=== PATIENT | female | born 1965 ===

== ENCOUNTER 2021-09-20 20:23 | Emergency (ER) | payer SELFPAY ==
[2021-09-20] MEDS ORDERED: ACETAMINOPHEN 500 MG TAB PO ONE (21:15)
[2021-09-20] MEDS ORDERED: HYDROcodone/ACETAMINOPHEN 5-325 MG TAB PO ONE (21:39)
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
--- NOTE | 2021-09-20 21:51 | XRay Report ---
RIGHT TIBIA-FIBULA 2 VIEW(S) INDICATION / CLINICAL INFORMATION: RLE pain COMPARISON: None available. FINDINGS: BONES / JOINT(S): There is a minimally displaced transverse fracture through the proximal fibular mike physis. No significant arthritis. SOFT TISSUES: No significant abnormality. ADDITIONAL FINDINGS: None. Signer Name: Fahad Sidhu DO Signed: 09/20/2021 9:47 PM Workstation Name: [id number]
--- NOTE | 2021-09-20 21:52 | XRay Report ---
RIGHT KNEE 3 VIEW(S) INDICATION / CLINICAL INFORMATION: knee pain COMPARISON: None available. FINDINGS: BONES / JOINT(S): Minimally displaced fracture at the proximal fibular diaphysis No significant arthr itis. SOFT TISSUES: No significant abnormality. ADDITIONAL FINDINGS: None. Signer Name: Fahad Sidhu DO Signed: 09/20/2021 9:47 PM Workstation Name: [id number]
[2021-09-21 00:51] VITALS: BP 152/70
== END 2021-09-20 23:48 | disposition home or self-care (01) ==
LOC: ED 20:23
DX: S82.831A Other fracture of upper and lower end of right fibula, initial encounter for closed fracture (principal); I10 Essential (primary) hypertension; E11.9 Type 2 diabetes mellitus without complications; X58.XXXA Exposure to other specified factors, initial encounter; Y93.89 Activity, other specified; Y92.89 Other specified places as the place of occurrence of the external cause; Y99.8 Other external cause status
CPT/HCPCS: 99283